=== PATIENT | female | born 1975 | race Caucasian/White ===

== ENCOUNTER 2016-04-12 13:38 | Emergency (ER) | payer BC ==
[~2016-04-12] VITALS: Ht 167.6 cm; Wt 81.6 kg
[2016-04-12 14:25] VITALS: BP 150/69; PULSE 77; RESP 20; TEMP 98.2; O2SAT 96
--- NOTE | 2016-04-12 14:32 | NUR ---
No ER beds available at this time. Pt placed to ER waiting room in stable condition. Pt not dangerous to self or others. Parents at side.
--- NOTE | 2016-04-12 14:32 | NUR ---
Ez ch in ED - 04/12/16 at 1443 by JESSICA Pt placed to ER bed 04 and report given to HILARY Rausch.
--- NOTE | 2016-04-12 15:55 | NUR ---
Received report. Parents present at bedside. Patient in stable condition, alert and oriented x4, no distress noted. Patient cooperative, non aggressive/combative, resting in bed quietly. Per mother, patient has been having auditory hallucinations for past 3-4 days, stating that "the voices were telling her she is evil and going to hell", also states has been pacing and not sleeping for 3-4days. Per patient, denies any auditory or visual hallucinations at this time or for past few days, denies any problems at this time. Patient denies any sucidial ideation or thoughts of harming others. No other complaints/injuries per patient or noted.
--- NOTE | 2016-04-12 16:41 | NUR ---
Urine pregancy performed in triage-negative
[2016-04-12 16:49] LABS: BILIRUBIN,URINE NEGATIVE (NEGATIVE); BLOOD, URINE NEGATIVE (NEGATIVE); CLARITY/URINE HAZY (CLEAR); COLOR,URINE YELLOW (YELLOW); GLUCOSE,URINE NEGATIVE (NEGATIVE); KETONES,URINE 2+ (NEGATIVE); LEUKOCYTE ESTERASE ,URINE NEGATIVE (NEGATIVE); NITRITE, URINE NEGATIVE (NEGATIVE); PROTEIN URINE NEGATIVE (NEGATIVE); UROBILINOGEN,URINE 0.2 (0.2-1.0)
[2016-04-12 16:59] LABS: BASOPHILS % (AUTO) 0.6 % (0.0-2.0); EOSINOPHILS # (AUTO) 0.2 K/uL (0.0-0.4); EOSINOPHILS % (AUTO) 2.3 % (0.0-4.0); HEMATOCRIT 39.5 % (36-48); HEMOGLOBIN 13.8 g/dL (12.0-16.0); LYMPHOCYTES # (AUTO) 2.2 K/uL (1.0-5.5); MEAN CORPUSCULAR HEMOGLOBIN 30 pg (27-31); MEAN CORPUSCULAR HGB CONC 35 % (32-36); MEAN CORPUSCULAR VOLUME 85 fL (79.0-98.0); MONOCYTES # (AUTO) 0.7 K/uL (0.0-1.0); MONOCYTES % (AUTO) 9.1 % (1.7-9.3); NEUTROPHILS # (AUTO) 4.9 K/uL (1.8-7.7); PLATELET COUNT (AUTO) 219 K/uL (130-430); RED BLOOD CELL COUNT(AUTO) 4.64 MIL/uL (4.2-6.2); RED CELL DISTRIBUTION WIDTH 11.8 % (9.0-15.0); WHITE BLOOD COUNT (AUTO) 8.1 K/uL (4.8-10.8)
[2016-04-12 17:00] LABS: BACTERIA,URINE FEW /HPF (None Seen); MUCUS,URINE 1+ /LPF (None Seen); RBC,URINE NONE SEEN /HPF (0-3)
--- NOTE | 2016-04-12 17:00 | NUR ---
Patient now stating she is "scared she is going to hell". Cooperative, non agressive/combative. No suicidal ideation or voicing thoughts to harm others.
[2016-04-12 17:02] LABS: BARBITURATE, URINE NEGATIVE (NEG <=200); BENZODIAZEPINE, URINE NEGATIVE (NEG <=150); CANNABINOID, URINE POSITIVE (NEG <=50); COCAINE, URINE NEGATIVE (NEG <=150); METHAMPHETAMINES SCREEN,URINE NEGATIVE (NEG <=500); OPIATE, URINE NEGATIVE (NEG <=100); PHENCYCLIDINE SCREEN,URINE NEGATIVE (NEG <=25); UR TRICYCLIC ANTIDEPRESSANTS NEGATIVE (NEG <=300); URINE AMPHETAMINE NEGATIVE (NEG <=500); URINE METHADONE NEGATIVE (NEG <=200); URINE OXYCODONE SCREEN NEGATIVE (NEG <=100); URINE PROPOXYPHENE SCREEN NEGATIVE (NEG <=300)
[2016-04-12 17:04] LABS: ANION GAP 7 (5-15); CALCIUM 8.9 mg/dL (8.4-11.0); CHLORIDE 103 mmol/L (98-107); CREATININE 0.92 mg/dL (0.55-1.30); GLUCOSE 138 mg/dL (70-99); POTASSIUM 3.3 mmol/L (3.5-5.1); SODIUM SERUM 140 mmol/L (136-145); UREA NITROGEN, BLOOD 7 mg/dL (8-21)
[2016-04-12 17:05] LABS: GFR AFRICAN AMERICAN 87 mL/min (>90)
[2016-04-12 17:29] LABS: ALANINE AMINOTRANSFERASE 31 U/L (12-78); ALBUMIN 4.1 g/dL (3.4-4.8); ASPARTATE AMINOTRANSFERASE 44 U/L (10-37); TOTAL BILIRUBIN 0.4 mg/dL (0.0-1.0); TOTAL PROTEIN, SERUM 7.3 g/dL (6.4-8.3)
[2016-04-12 17:30] LABS: ALCOHOL, BLOOD < 3 mg/dL (<10); SALICYLATE 5 mg/dL (3-30); THYROID STIMULATING HORMONE 1.16 uIu/mL (0.34-4.82)
[2016-04-12 17:50] LABS: ACETAMINOPHEN < 1 ug/mL (1-30)
[2016-04-12] MEDS ORDERED: POTASSIUM CHLORIDE 20 MEQ TAB.PRT.SR PO ONE ×2 (18:00→18:15)
--- NOTE | 2016-04-12 18:00 | NUR ---
Patient resting quietly in bed, no distress noted.
--- NOTE | 2016-04-12 18:35 | NUR ---
Patient states is no longer hearing voices. Cooperative, non agressive/combative. No suicidal ideation or voicing thoughts to harm others.
[2016-04-12 18:42] VITALS: BP 117/80; PULSE 67; RESP 18; TEMP 97.8; O2SAT 99
--- NOTE | 2016-04-12 18:42 | NUR ---
Patient given written and verbal discharge instructions and verbalizes understanding. ER MD discussed with patient the results and treatment provided. Patient in stable condition. ID arm band removed. IV catheter removed intact and dressing applied, no active bleeding. Patient educated on pain management and to follow up with PMD in 2 days. Opportunity for questions provided and answered. Addendum: 04/12/16 at 1852 by BETH ALEXANDRIA SALCIDO
== END 2016-04-12 18:42 | disposition home or self-care (01) ==
LOC: SED 13:38
DX: R53.1 Weakness (principal)
CPT/HCPCS: 36415; 80053; 80307; 81000; 81025; 84443; 85025; 93005; 99285; G0480; G0481; G0482